=== PATIENT | female | born 2000 | race African-American/Black ===

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

== ENCOUNTER 2020-03-15 20:31 | Emergency (ER) | payer SELFPAY ==
[~2020-03-15] VITALS: Ht 175.3 cm; Wt 59.1 kg
[2020-03-15 20:39] VITALS: TEMP 98.6
[2020-03-15 20:55] LABS: COLLECTION METHOD CLEAN CATCH
[2020-03-15 21:01] LABS: PH 7 (5-8); SQUAMOUS EPITHELIAL 0-2 /hpf; URINE APPEARANCE Clear; URINE BACTERIA None Seen /hpf; URINE BILIRUBIN Negative (NEGATIVE); URINE BLOOD Negative (NEGATIVE); URINE COLOR Straw; URINE GLUCOSE Negative (NEGATIVE); URINE KETONE Trace (NEGATIVE); URINE LEUKOCYTE ESTERASE Negative (NEGATIVE); URINE NITRATE Negative (NEGATIVE); URINE PROTEIN(semi-quant) Negative (NEGATIVE); URINE RBC 0-2 /hpf; URINE UROBILINOGEN Negative (NEGATIVE)
[2020-03-15 21:37] VITALS: BP 110/58; PULSE 83
== END 2020-03-15 21:36 | disposition home or self-care (01) ==
LOC: COL.ER 20:31
PROVIDERS: Physician Assistant
DX: Z32.01 Encounter for pregnancy test, result positive (principal)

== ENCOUNTER 2020-07-06 10:51 | Emergency (ER) | payer MEDICAID ==
[~2020-07-06] VITALS: Ht 172.7 cm; Wt 65.9 kg
[2020-07-06 10:56] VITALS: TEMP 98.1
[2020-07-06] MEDS ORDERED: PROAIR HFA0.09 MG/AC IH (11:14)
[2020-07-06 11:54] VITALS: BP 113/68; PULSE 84
== END 2020-07-06 11:54 | disposition home or self-care (01) ==
LOC: COL.ER 10:51
DX: Z76.0 Encounter for issue of repeat prescription (principal); J45.909 Unspecified asthma, uncomplicated

== ENCOUNTER → 2020-11-10 | Outpatient (CLI) | payer MEDICAID | LOC: ZCOL.LAB 08:00 | DX: Z20.822 Contact with and (suspected) exposure to COVID-19 (principal) ==

== ENCOUNTER 2020-11-15 07:17 | Inpatient (IN) | payer MEDICAID ==
[~2020-11-15] VITALS: Ht 170.3 cm; Wt 79.1 kg
[2020-11-15] VITALS (64 sets, daily range): BP systolic 91–133; BP diastolic 51–100; PULSE 67–104; TEMP 97.6–98.1
--- NOTE | 2020-11-15 08:26 | NUR ---
0725 PATIENT HERE FROM HOME FOR INDUCTION OF LABOR. EFM ON FHT 130 BABY ACTIVE. NO CONTRACTIONS NOTED BY PATIENT. PATIENT HAS FLAT AFFECT. AND TALKS MINIMAL. ASSESSMENT COMPLETED. BOYFRIEND AT BEDSIDE. DENIES NEEDS. IV STARTED IN LEFT WRIST.
[2020-11-15 08:32] LABS: HEMATOCRIT 37.8 % (35.0-45.0); HEMOGLOBIN 13.6 g/dl (12.0-15.0); MEAN CELL VOLUME 82 fl (80.0-95.0); MEAN CORPUSCULAR HEMOGLOBIN 30 pg (26.0-32.0); MEAN CORPUSCULAR HGB CONC 36 g/dl (33.0-37.0); MEAN PLATELET VOLUME 11.4 fl (7.4-10.4); PLATELET COUNT 254 K/mm3 (130-400); RED BLOOD COUNT 4.61 M/mm3 (4.10-5.30); REDCELL DISTRIBUTION WIDTH-CV 12.7 % (11.5-14.5)
[2020-11-15 08:45] LABS: TRICYCLIC ANTIDEPRESS URINE NEGATIVE
[2020-11-15 09:50] LABS: BAND 3 % (0-10); EOSINOPHIL 1 % (0-4); LYMPHOCYTE 9 % (20.0-51.0); NEUTROPHILS 83 % (42.0-75.2); PLATELET ESTIMATE NORMAL (NORMAL)
--- NOTE | 2020-11-15 13:00 | NUR ---
1245 ROLES AT BEDSIDE. AROM WITH AMNIOHOOK, TOLERATES WELL. LARGE AMOUNT OF CLEAR FLUID.
--- NOTE | 2020-11-15 15:32 | NUR ---
1530 NO CHANGES NOTED AT THIS TIME. PATIENT RESTS WITH EYES CLOSED WITH BOYFRIEND AT BEDSIDE. DR CONTRERAS CALLED WITH NO NEW ORDERS
--- NOTE | 2020-11-15 17:02 | NUR ---
1635 FHT DECREASED TO 90'S. PATIENT REPOSITIONED TO HIGH LEFT SIDE AND FHT INCREASE TO 120. SVE /-1. PATIENT STATES CONTRACTIONS GETTING STRONGER. BUT A FLAT AFFECT
--- NOTE | 2020-11-15 17:31 | NUR ---
1715 DR NUGENT AT BEDSIDE. SVE /-1 IUPC PLACED AT THIS TIME
--- NOTE | 2020-11-15 19:17 | NUR ---
191- Pt sitting up on the edge of the bed for epidural placement. SPO2 monitor started. 191- CAMILLA Herrera at the bedside. Time out done. EFM tracing maternal HR as coorelates with SPO2 monitor. 1929- Test dose done. See anesthesia records for details. 193- Assisted pt back to supine position with left wedge.
--- NOTE | 2020-11-15 19:40 | NUR ---
Ephedrine given per order for low blood pressure. See EMAR for details.
--- NOTE | 2020-11-15 21:28 | NUR ---
2127- Roles at the bedside for discussion about possible wtih pt and boyfriend. 2134- decision. 2145- Pt off EFM to the OR.
[2020-11-16] VITALS (8 sets, daily range): BP systolic 102–129; BP diastolic 54–89; PULSE 72–108; TEMP 98.1–98.5
[2020-11-16 08:12] LABS: HEMATOCRIT 33.8 % (35.0-45.0); HEMOGLOBIN 12.1 g/dl (12.0-15.0)
[2020-11-16] MEDS ORDERED: IBU600 MG PO (08:53)
[2020-11-16] MEDS ORDERED: PERCOCET 325 MG1 TA2 PO (08:54)
--- NOTE | 2020-11-16 09:22 | NUR ---
Initial visit; Mom thanked Specimen Transporter for offering congratulations and God's blessings for the of her daughter. Specimen Transporter thanked mom for choosing [facility].
[2020-11-17 07:51] VITALS: BP 109/71; PULSE 87; TEMP 97.7
[2020-11-17 16:23] VITALS: BP 117/71; PULSE 93; TEMP 97.6
== END 2020-11-17 17:45 | disposition home or self-care (01) | DRG 788 ==
LOC: LDR 07:17 → OB 07:17
PROVIDERS: ADMIT Obstetrics & Gynecology
PROC: 10D00Z1 Extraction of Products of Conception, Low, Open Approach (ICD-10-PCS; principal; 2020-11-15)
DX: O48.0 Post-term pregnancy (principal); Z3A.41 41 weeks gestation of pregnancy; Z37.0 Single live birth; O62.1 Secondary uterine inertia
CPT/HCPCS: J0690; J1885; J2400; J2405; J2590; J7120

== ENCOUNTER 2021-05-07 19:34 | Emergency (ER) | payer MEDICAID ==
[~2021-05-07] VITALS: Ht 172.7 cm; Wt 52.3 kg
[~2021-05-07 19:34] MED LIST changes: +IBU600 MG PO; +PERCOCET 325 MG1 TA2 PO
[2021-05-07 19:40] VITALS: TEMP 98
[2021-05-07 20:13] LABS: COLLECTION METHOD CLEAN CATCH
[2021-05-07 20:19] LABS: BASO % 0.3 % (0.0-2.0); EOS # 0.1 (0.0-0.7); EOS % 1.2 % (0-4.0); GRAN # 9.1 (1.4-6.5); GRAN % 75.5 % (42.2-75.2); HEMATOCRIT 37.5 % (35.0-45.0); LYMPH # 2.1 (1.2-3.4); LYMPH % 17.7 % (20.0-51.0); MEAN CELL VOLUME 81 fl (80.0-95.0); MEAN CORPUSCULAR HEMOGLOBIN 28 pg (26.0-32.0); MEAN CORPUSCULAR HGB CONC 35 g/dl (33.0-37.0); MEAN PLATELET VOLUME 10.4 fl (7.4-10.4); MONO # 0.6 (0.1-0.6); PLATELET COUNT 338 K/mm3 (130-400); RED BLOOD COUNT 4.65 M/mm3 (4.10-5.30); REDCELL DISTRIBUTION WIDTH-CV 13.2 % (11.5-14.5)
[2021-05-07 20:29] LABS: MUCOUS Present /lpf; PH 5 (5-8); URINE APPEARANCE Hazy; URINE BACTERIA None Seen /hpf; URINE BILIRUBIN Negative (NEGATIVE); URINE BLOOD 3+ (NEGATIVE); URINE COLOR Yellow; URINE GLUCOSE Negative (NEGATIVE); URINE KETONE Negative (NEGATIVE); URINE LEUKOCYTE ESTERASE Negative (NEGATIVE); URINE NITRATE Negative (NEGATIVE); URINE PROTEIN(semi-quant) 2+ (NEGATIVE); URINE RBC 0-2 /hpf; URINE UROBILINOGEN Negative (NEGATIVE)
[2021-05-07 20:44] LABS: ALBUMIN 4.3 gm/dL (3.5-5.0); BILIRUBIN,TOTAL 0.3 mg/dL (0.0-1.0); CREATININE, serum 0.71 (0.52-1.25); POTASSIUM 3.6 mmol/L (3.4-5.0)
[2021-05-07 23:11] VITALS: BP 114/70; PULSE 66
[2021-05-08] MEDS ORDERED: FLAGYL500 MG PO (07:48)
== END 2021-05-07 23:11 | disposition home or self-care (01) ==
LOC: COL.ER 19:34
PROVIDERS: Emergency Medicine
DX: R10.32 Left lower quadrant pain (principal); N92.0 Excessive and frequent menstruation with regular cycle
CPT/HCPCS: J1885; J2270; J2405; J7030

== ENCOUNTER 2021-10-08 17:34 | Emergency (ER) | payer MEDICAID ==
[~2021-10-08] VITALS: Ht 175.3 cm; Wt 61.4 kg
[2021-10-08 17:58] VITALS: BP 99/66; PULSE 87; TEMP 98.2
[2021-10-08 18:10] LABS: COLLECTION METHOD CLEAN CATCH
[2021-10-08 18:24] LABS: MUCOUS Present (NOT PRESENT); PH 5 (5-8); SQUAMOUS EPITHELIAL 0-2 /hpf (0-10); URINE APPEARANCE Hazy (CLEAR/HAZY); URINE BACTERIA None Seen /hpf (NONE SEEN); URINE BILIRUBIN Negative (NEGATIVE); URINE BLOOD Negative (NEGATIVE); URINE COLOR Yellow (YELLOW); URINE GLUCOSE Negative (NEGATIVE); URINE KETONE Trace (NEGATIVE); URINE LEUKOCYTE ESTERASE Negative (NEGATIVE); URINE NITRATE Negative (NEGATIVE); URINE PROTEIN(semi-quant) 1+ (NEGATIVE); URINE RBC 0-2 /hpf (0-2); URINE UROBILINOGEN Negative (NEGATIVE)
[2021-10-09] MEDS ORDERED: CLEOCIN HCL300 MG PO (13:54)
[2021-10-09] MEDS ORDERED: FLAGYL500 MG PO (13:54)
== END 2021-10-08 20:35 | disposition left against medical advice (07) ==
LOC: COL.ER 17:34
PROVIDERS: Personal Emergency Response Attendant
DX: N89.8 Other specified noninflammatory disorders of vagina (principal); R10.10 Upper abdominal pain, unspecified; J45.909 Unspecified asthma, uncomplicated

== ENCOUNTER 2021-10-09 09:34 | Emergency (ER) | payer MEDICAID ==
[~2021-10-09] VITALS: Ht 175.3 cm; Wt 61.4 kg
[2021-10-09 09:41] VITALS: TEMP 98
[2021-10-09 09:55] LABS: COLLECTION METHOD CLEAN CATCH
[2021-10-09 10:34] LABS: MUCOUS Present (NOT PRESENT); PH 6 (5-8); URINE APPEARANCE Hazy (CLEAR/HAZY); URINE BACTERIA None Seen /hpf (NONE SEEN); URINE BILIRUBIN Negative (NEGATIVE); URINE BLOOD Negative (NEGATIVE); URINE COLOR Yellow (YELLOW); URINE GLUCOSE Negative (NEGATIVE); URINE KETONE Negative (NEGATIVE); URINE LEUKOCYTE ESTERASE Negative (NEGATIVE); URINE NITRATE Negative (NEGATIVE); URINE PROTEIN(semi-quant) Negative (NEGATIVE); URINE RBC 0-2 /hpf (0-2); URINE UROBILINOGEN Negative (NEGATIVE)
[2021-10-09 10:34] LABS: BASO # 0.1 K/mm3 (0.0-0.2); BASO % 0.3 % (0.0-2.0); EOS # 0.2 K/mm3 (0.0-0.7); EOS % 1.5 % (0.0-4.0); GRAN # 10.8 K/mm3 (1.4-6.5); GRAN % 71.9 % (42.2-75.2); HEMATOCRIT 35.1 % (35.0-45.0); HEMOGLOBIN 12.5 g/dl (12.0-15.0); LYMPH # 2.9 K/mm3 (1.2-3.4); MEAN CELL VOLUME 77 fl (80.0-95.0); MEAN CORPUSCULAR HEMOGLOBIN 28 pg (26-32); MEAN CORPUSCULAR HGB CONC 36 g/dl (33.0-37.0); MEAN PLATELET VOLUME 9.5 fl (7.4-10.4); MONO % 6.8 % (1.7-9.3); PLATELET COUNT 429 K/mm3 (130-400); RED BLOOD COUNT 4.55 M/mm3 (4.10-5.30); REDCELL DISTRIBUTION WIDTH-CV 13.6 % (11.5-14.5)
[2021-10-09 10:50] LABS: ALBUMIN 3.4 gm/dL (3.5-5.0); BILIRUBIN,TOTAL 0.3 mg/dL (0.2-1.2); CALCIUM 9.1 mg/dL (8.4-10.2); CREATININE, serum 0.65 mg/dL (0.57-1.11); POTASSIUM 3.6 mmol/L (3.5-4.5); TOTAL PROTEIN 7.4 gm/dL (6.2-8.1)
[2021-10-09 13:51] VITALS: BP 109/64; PULSE 69
[2021-10-09] MEDS ORDERED: FLAGYL500 MG PO (13:54)
[2021-10-09] MEDS ORDERED: CLEOCIN HCL300 MG PO (13:54)
== END 2021-10-09 14:00 | disposition home or self-care (01) ==
LOC: COL.ER 09:34
PROVIDERS: Emergency Medicine; Nurse Practitioner
DX: O23.591 Infection of other part of genital tract in pregnancy, first trimester (principal); B96.89 Other specified bacterial agents as the cause of diseases classified elsewhere; Z3A.08 8 weeks gestation of pregnancy

== ENCOUNTER 2022-02-08 20:18 | Emergency (ER) | payer MEDICAID ==
[~2022-02-08] VITALS: Ht 172.7 cm; Wt 66.8 kg
[~2022-02-08 20:18] MED LIST changes: +CLEOCIN HCL300 MG PO
[2022-02-08 20:25] VITALS: TEMP 98.2
--- NOTE | 2022-02-08 21:17 | NUR ---
This RN to bedside for FHR tracing. Baseline 145 bpm tracing and audible. Much movement audible with accelerations. No uterine activity noted.
[2022-02-08] MEDS ORDERED: ALBUTEROL SULFAT3 M3 IH (22:29)
[2022-02-08] MEDS ORDERED: PROAIR HFA0.09 MG/AC IH (22:29)
[2022-02-08] MEDS ORDERED: PREDNISONE50 MG PO (22:29)
[2022-02-08 22:46] VITALS: BP 112/70; PULSE 110
== END 2022-02-08 22:50 | disposition home or self-care (01) ==
LOC: COL.ER 20:18
DX: O99.512 Diseases of the respiratory system complicating pregnancy, second trimester (principal); J45.909 Unspecified asthma, uncomplicated; Z3A.27 27 weeks gestation of pregnancy
CPT/HCPCS: J7512

== ENCOUNTER 2022-05-10 09:53 | Inpatient (IN) | payer MEDICAID ==
[2022-05-10] VITALS (16 sets, daily range): BP systolic 71–108; BP diastolic 32–65; PULSE 56–81; TEMP 97.7–98.8
[~2022-05-10] VITALS: Ht 172.7 cm; Wt 73.6 kg
[~2022-05-10 09:53] MED LIST changes: +ALBUTEROL SULFAT3 M3 IH; +PREDNISONE50 MG PO
[2022-05-10 10:25] LABS: BASO # 0.1 K/mm3 (0.0-0.2); BASO % 0.3 % (0.0-2.0); EOS # 0.5 K/mm3 (0.0-0.7); GRAN # 11.9 K/mm3 (1.4-6.5); GRAN % 74.3 % (42.2-75.2); HEMATOCRIT 37.1 % (37.0-47.0); HEMOGLOBIN 13.3 g/dl (12.5-16.0); LYMPH # 2.5 K/mm3 (1.2-3.4); LYMPH % 15.3 % (20.0-51.0); MEAN CELL VOLUME 79 fl (80.0-100.0); MEAN CORPUSCULAR HEMOGLOBIN 28 pg (27-31); MEAN CORPUSCULAR HGB CONC 36 g/dl (33.0-37.0); MEAN PLATELET VOLUME 11.3 fl (7.4-10.4); MONO % 6.4 % (1.7-9.3); PLATELET COUNT 228 K/mm3 (130-400); RED BLOOD COUNT 4.71 M/mm3 (4.10-5.30)
[2022-05-10 11:15] LABS: TRICYCLIC ANTIDEPRESS URINE NEGATIVE
--- NOTE | 2022-05-10 12:32 | NUR ---
ANESTHESIA NOTIFIED OF HYPOTENSION. NO NEW ORDERS GIVEN.
--- NOTE | 2022-05-10 12:33 | NUR ---
1217- PT PLACED SUPINE. IV BOLUS STARTED.
--- NOTE | 2022-05-10 17:41 | NUR ---
1740- PER PT MONITOR BS IS 102 AT THIS TIME. PT TO EAT DINNER.
[2022-05-11 05:25] VITALS: BP 96/56; PULSE 66; TEMP 98.1
[2022-05-11 07:41] VITALS: BP 91/77; PULSE 67; TEMP 98
--- NOTE | 2022-05-11 10:48 | NUR ---
Initial visit; Parents thanked Manager Care Management for offering congratulations and God's blessings for the of their daughter. Manager Care Management thanked family for choosing [facility].
--- NOTE | 2022-05-11 13:15 | NUR ---
SW recieved social worker clinical notice for pt due to hx of drug use and STI hx. Pt reports she is good and has everything she needs for the baby. SW offered resources and pt denied.
[2022-05-11 16:18] VITALS: BP 107/61; PULSE 80; TEMP 97.7
[2022-05-11 20:02] VITALS: BP 106/60; PULSE 69; TEMP 97.8
[2022-05-12 08:22] VITALS: BP 93/48; PULSE 66; TEMP 97.8
[2022-05-12] MEDS ORDERED: IBU600 MG PO (10:12)
[2022-05-12] MEDS ORDERED: PERCOCET 325 MG1 TA2 PO (10:12)
--- NOTE | 2022-05-15 07:09 | NUR ---
Patient's infant's cord blood was negative for illegal drugs in system.
== END 2022-05-12 11:50 | disposition home or self-care (01) | DRG 788 ==
LOC: OB 09:53
PROVIDERS: ADMIT Obstetrics & Gynecology
PROC: 10D00Z1 Extraction of Products of Conception, Low, Open Approach (ICD-10-PCS; principal; 2022-05-10)
DX: O34.211 Maternal care for low transverse scar from previous cesarean delivery (principal); J45.909 Unspecified asthma, uncomplicated; O99.52 Diseases of the respiratory system complicating childbirth; Z3A.39 39 weeks gestation of pregnancy; Z37.0 Single live birth; O99.02 Anemia complicating childbirth; D57.3 Sickle-cell trait
CPT/HCPCS: J0690; J1100; J1885; J2370; J2405; J2590; J7120

== ENCOUNTER 2022-12-14 23:27 | Emergency (ER) | payer MEDICAID ==
[~2022-12-14] VITALS: Ht 170.2 cm; Wt 75.0 kg
[2022-12-14 23:33] VITALS: TEMP 96.7
[2022-12-15 00:10] LABS: BASO # 0.1 K/mm3 (0.0-0.2); BASO % 0.6 % (0.0-2.0); EOS # 0.2 K/mm3 (0.0-0.7); EOS % 1.8 % (0.0-4.0); GRAN # 8.5 K/mm3 (1.4-6.5); GRAN % 67.6 % (42.2-75.2); HEMATOCRIT 40.9 % (37.0-47.0); HEMOGLOBIN 14.2 g/dl (12.5-16.0); LYMPH # 2.8 K/mm3 (1.2-3.4); MEAN CELL VOLUME 80 fl (80.0-100.0); MEAN CORPUSCULAR HEMOGLOBIN 28 pg (27-31); MEAN CORPUSCULAR HGB CONC 35 g/dl (33.0-37.0); MEAN PLATELET VOLUME 11.4 fl (7.4-10.4); MONO % 7.9 % (1.7-9.3); PLATELET COUNT 127 K/mm3 (130-400); REDCELL DISTRIBUTION WIDTH-CV 13.2 % (11.5-14.5)
[2022-12-15 00:30] LABS: ALBUMIN 4.1 gm/dL (3.5-5.0); BILIRUBIN,TOTAL 0.2 mg/dL (0.2-1.2); CALCIUM 8.7 mg/dL (8.4-10.2); CREATININE, serum 0.73 mg/dL (0.57-1.11); POTASSIUM 3.6 mmol/L (3.5-4.5); TOTAL PROTEIN 7.9 gm/dL (6.2-8.1)
[2022-12-15 09:16] VITALS: BP 105/65; PULSE 92
== END 2022-12-15 09:16 | disposition home or self-care (01) ==
LOC: COL.ER 23:27
PROVIDERS: Emergency Medicine Emergency Medical Services
DX: S01.511A Laceration without foreign body of lip, initial encounter (principal); F10.10 Alcohol abuse, uncomplicated; Y90.8 Blood alcohol level of 240 mg/100 ml or more; X58.XXXA Exposure to other specified factors, initial encounter